=== PATIENT | female | born 2000 | race Caucasian/White ===

== ENCOUNTER 2020-10-04 17:04 | Outpatient (CLI) | payer OTHER ==
[2020-10-04 17:24] LABS: BASOPHILS % (AUTO) 0.4 %; EOSINOPHILS % (AUTO) 0.5 %; HGB - HEMOGLOBIN 13.3 g/dL (12.0-16.0); LYMPHOCYTES # (AUTO) 1.5 10^3/uL (1.5-3.5); LYMPHOCYTES % (AUTO) 26.1 %; MEAN CORPUSCULAR HEMOGLOBIN 29.2 pg (27.0-31.0); MEAN CORPUSCULAR HGB CONC 33.9 g/dL (32.0-36.0); MEAN CORPUSCULAR VOLUME 86.2 fL (81.0-99.0); MEAN PLATELET VOLUME 10.2 fL (7.9-10.8); MONOCYTES # (AUTO) 0.3 10^3/uL (0.0-1.0); MONOCYTES % (AUTO) 5.9 %; NEUTROPHILS # (AUTO) 3.8 10^3/uL (1.5-6.6); NEUTROPHILS % (AUTO) 66.9 %; PLT - PLATELET COUNT 213 10^3/uL (130-450); RED BLOOD COUNT 4.55 10^6/uL (4.20-5.40); RED CELL DISTRIBUTION WIDTH 11.9 % (12.0-15.0); WHITE BLOOD COUNT 5.6 x10^3/uL (4.8-10.8)
== END 2020-10-04 17:05 | disposition home or self-care (01) ==
LOC: LAB 17:04
PROVIDERS: ATTEND Physician Assistant
DX: R53.83 Other fatigue (principal); N93.9 Abnormal uterine and vaginal bleeding, unspecified
CPT/HCPCS: 36415; 85025

== ENCOUNTER 2020-10-17 16:54 | Outpatient (CLI) | payer OTHER ==
--- NOTE | 2020-10-18 09:17 | Ultrasound Report ---
PROCEDURE: Pelvic w/Transvaginal INDICATIONS: VAGINAL BLEEDING, HEMORRHAGE TECHNIQUE: Real-time scanning was performed of the pelvic organs, with image documentation. Additional endovagi nal scanning was necessary due to incomplete visualization of the adnexal and endometrial structures by transabdominal scanning. COMPARISON: None. FINDINGS: No pathologic free abdominal or pelvic fluid. Uterus: Uterus is normal in size at 5.6 x 2.2 x 4.4 cm. The endometrium measures 4 mm in combined t hickness. Ovaries: The right ovary measures 3.3 x 1.8 x 1.5 cm (4.5 mL). The left ovary measures 3 x 2.1 x 2.5 cm (8.3 mL). IMPRESSION: No significant abnormality is identified sonographically in the pelvis. Reviewed by: Gideon Alexander MD on 10/18/2020 9:16 AM PST Approved by: Gideon Alexander MD on 10/18/2020 9:16 AM PST Station ID: [id number]
== END 2020-10-17 16:55 | disposition home or self-care (01) ==
LOC: DI 16:54
PROVIDERS: ATTEND Physician Assistant
DX: O72.1 Other immediate postpartum hemorrhage (principal); N93.9 Abnormal uterine and vaginal bleeding, unspecified

== ENCOUNTER 2021-01-23 21:26 | Emergency (ER) | payer OTHER ==
--- OUTSIDE RECORDS SUMMARY | 2021-01-23 21:37 | EXTERNAL MEDICAL SUMMARY RPT | Continuity of Care Document ---
:2000 Demographics Phone Unavailable Preferred Language Unknown Marital Status Unknown Yazdanism Affiliation Unknown Race Unknown Ethnic Group Unknown Author Organization [facility] Address [address] [id number] Phone Social History date description facility [phone]
[2021-01-23 22:32] LABS: RAPID STREP SCREEN Negative (Negative)
[2021-01-23] MEDS ORDERED: CHERRY SYRUP 10 ML UDC PO ONE (22:53)
[2021-01-23] MEDS ORDERED: DEXAMETHASONE 10 MG/ML VIAL PO STA (22:53)
--- NOTE | 2021-01-23 22:55 | ED Physician Documentation ---
PD HPI URI - Stated complaint Stated Complaint: SORE THROAT - Chief complaint Chief Complaint: Heent - History obtained from History obtained from: Patient - Additional information Additional information: 20-year-old woman with past medical history of strep throat presents requesting a strep test, stating she has had a sore throat for the past couple days. Denies cough, fever, nausea or vomiting. She does have painful neck lymphadenopathy. Review of Systems Ten Systems: 10 systems reviewed and negative Constitutional: denies: Fever, Chills Throat: reports: Sore throat, Swollen tonsils Cardiac: denies: Chest pain / pressure Respiratory: denies: Dyspnea, Cough PD PAST MEDICAL HISTORY - Past Medical History Past Medical History: Yes Neuro: Migraines - Past Surgical History Past Surgical History: Yes /[employer]: Dilation and currettage - Present Medications Home Medications: Ambulatory Orders Medication Instructions Recorded Confirmed Amitriptyline [Elavil] 10 mg PO DAILY 01/23/21 01/23/21 Sumatriptan [Imitrex] 20 spray NS QPM 01/23/21 01/23/21 - Allergies Allergies/Adverse Reactions: Allergies Allergy/AdvReac Type Severity Reaction Status Date / Time No Known Drug Allergies Allergy Verified 01/23/21 22:12 - Social History Does the pt smoke?: No Smoking Status: Never smoker Does the pt drink ETOH?: No Does the pt have substance abuse?: No - Immunizations Immunizations are current?: Yes - POLST Patient has POLST: No PD ED PE NORMAL - Vitals Vital signs reviewed: Yes - General General: Alert and oriented X 3, No acute distress, Well developed/nourished - HEENT HEENT: Atraumatic, PERRL, EOMI, Moist mucous membranes, Pharynx benign, Other (mild tonsillar enlargement without exudates. tender ant cervical LAD) - Neck Neck: Supple, no meningeal sign - Cardiac Cardiac: RRR - Respiratory Respiratory: No respiratory distress, Clear bilaterally Results - Vitals Vitals: Vital Signs - 24 hr 01/23/21 01/23/21 22:09 23:02 Temperature 36.7 C 36.9 C Heart Rate 117 H 111 H Respiratory 18 20 Rate Blood Pressure 122/90 H 114/74 O2 Saturation 100 100 Oxygen O2 Source Room air - Labs Labs: Laboratory Tests 01/23/21 22:07 Group A Strep Rapid Negative PD MEDICAL DECISION MAKING - ED course ED course: 20-year-old girl appears and is requesting strep test. Strep test negative. Likely viral URI. Decadron given and return precautions given. Patient will follow up with her primary doctor Departure - Departure Disposition: 01 Home, Self Care Clinical Impression: Viral URI Condition: Good Instructions: ED URI Viral Comments: You were seen in the emergency department for a viral upper respiratory infection. He received 10 mg of Decadron, a steroid that helps reduce inflammation in the throat and upper airways. If you have fevers (temp >100.4) for more than 10 days then you will need to see a doctor and you need antibiotics, but for now it is likely that it is a virus which does not respond to antibiotics. Wear a mask and wash your hands thoroughly. Return to the emergency department if you experience any new or worsening symptoms or have o ther concerns. Follow-up with your primary doctor. Discharge Date/Time: 01/23/21 23:04
[2021-01-23 23:04] VITALS: BP 114/74
== END 2021-01-23 23:04 | disposition home or self-care (01) ==
LOC: ED 21:26
DX: J06.9 Acute upper respiratory infection, unspecified (principal)
CPT/HCPCS: 87070; 87430; 99283; 99284; A9270

== ENCOUNTER 2021-11-07 18:23 | Outpatient (CLI) | payer OTHER ==
[2021-11-07 22:15] LABS: BILIRUBIN,URINE NEGATIVE (NEGATIVE); GLUCOSE, URINE (UA) NEGATIVE (NEGATIVE); KETONES,URINE (UA) NEGATIVE (NEGATIVE); LEUKOCYTE ESTERASE, URINE LARGE (NEGATIVE); NITRITE,URINE NEGATIVE (NEGATIVE); OCCULT BLOOD,URINE NEGATIVE (NEGATIVE); PROTEIN,URINE NEGATIVE (NEGATIVE); UROBILINOGEN,URINE 0.2 (NORMAL) E.U./dL (NORMAL)
[2021-11-07 22:16] LABS: CLARITY,URINE SL. CLOUDY (CLEAR)
[2021-11-07 22:46] LABS: BACTERIA,URINE Moderate /HPF (None Seen); RBC,URINE None Seen /HPF (0-5); SQUAMOUS EPITHELIAL CELL,UR MANY Squamous (<= Few); WBC CLUMPS,URINE PRESENT; WBC,URINE >25 /HPF (0-5)
[2021-11-07 23:38] LABS: BACTERIAL VAGINOSIS DNA POSITIVE (NEGATIVE); CANDIDA GLABRATA DNA NEGATIVE (NEGATIVE); CANDIDA GROUP DNA NEGATIVE (NEGATIVE); CANDIDA KRUSEI DNA NEGATIVE (NEGATIVE); TRICHOMONAS VAGINALIS DNA NEGATIVE (NEGATIVE)
[2021-11-08 00:57] LABS: NEISSERIA GONORRHOEAE DNA NEGATIVE (NEGATIVE); TRICHOMONAS VAGINALIS DNA NEGATIVE (NEGATIVE)
[2021-11-08 01:17] LABS: CHLAMYDIA TRACHOMATIS DNA POSITIVE (NEGATIVE)
[2021-11-10 10:46] LABS: HIV AG/AB 4TH GEN NON-REACTIVE (NON-REACTIVE)
[2021-11-10 16:16] LABS: HEPATITIS C ANTIBODY NON-REACTIVE (NON-REACTIVE)
[2021-11-11 12:25] LABS: HSV 1 IGG TYPE SPECIFIC AB 3.94 index; HSV 2 IGG TYPE SPECIFIC AB 0.99 index
== END 2021-11-07 23:59 | disposition home or self-care (01) ==
LOC: LAB.N 18:23
PROVIDERS: ATTEND Family Medicine
DX: Z11.3 Encounter for screening for infections with a predominantly sexual mode of transmission (principal)
CPT/HCPCS: 36415; 81001; 81599; 86592; 86695; 86696; 86803; 87086; 87389; 87491; 87591; 87661; 87801